=== PATIENT | female | born 1930 | race Caucasian/White ===

== ENCOUNTER 2017-01-06 18:22 | Inpatient (IN) | payer MEDICARE, OTHER ==
[2017-01-06] MEDS ORDERED: IOPAMIDOL 300 (61%) 100 ML VIAL IV ONE (18:23)
[2017-01-06 20:10] LABS: ABSOLUTE NEUTROPHIL COUNT 14.1 K/mm3 (1.8-7.7); BASO # 0.1 K/mm3 (0.0-0.2); BASO % 0.5 % (0.2-1.0); EOS # 0.1 (0.0-0.5); EOS % 0.5 % (0.9-2.9); HEMATOCRIT 35.7 % (37.0-47.0); HEMOGLOBIN 11.1 gm/l (12.0-16.0); IMM NEUT # 0.1 K/mm3 (0-0.2); IMM NEUT% 0.8 % (0-1); LYMPH # 1.2 (1.0-4.8); LYMPH % 7.2 % (15-45); MEAN CELL VOLUME 89.9 fl (81.0-99.0); MEAN CORPUSCULAR HGB CONC 31.1 g/dl (33.0-37.0); MONO # 1.3 (0.0-0.8); MONO % 7.9 % (4-12); NEUT % 83.1 % (43-75); PLATELET COUNT 496 K/mm3 (130-400); RED CELL DISTRIBUTION WIDTH 14.7 % (11.5-14.5)
[2017-01-06 20:21] LABS: ALB/GLOB RATIO 0.6 (>1.0); CALCIUM 10.3 mg/dL (8.6-10.3)
[2017-01-06 20:36] LABS: URINE BILIRUBIN NEGATIVE (NEGATIVE); URINE BLOOD NEGATIVE (NEGATIVE); URINE GLUCOSE (UA) 1+ (NEGATIVE); URINE LEUKOCYTE ESTERASE NEGATIVE (NEGATIVE); URINE NITRITE NEGATIVE (NEGATIVE); URINE PROTEIN NEGATIVE (NEGATIVE); URINE UROBILINOGEN NORMAL (0-1 mg/dl)
[2017-01-06 20:39] LABS: URINE APPEARANCE CLEAR; URINE COLOR YELLOW
[2017-01-06] MEDS ORDERED: LACTATED RINGERS 1,000 ML ONE ×2 (20:49→21:08)
[2017-01-06] MEDS ORDERED: PIPERACILLIN-TAZO PREMIX BAG 50 ML IV ONE (21:09)
--- NOTE | 2017-01-06 21:16 | CT ---
Exam Type: ABD/PELVIS W/ CON Date and Time: 01/06/2017 7:33 PM Clinical information: Decubitus ulcer along the sacrum. Question of osteomyelitis. Comparison: CT abdomen pelvis with contrast 05/08/2016. Technique: Contiguous axial 4 mm images were obtained from the lung bases through the pelvis after the uneventful IV administration of 100 cc of Isovue-300. Sagittal and coronal reformations with high resolution lung algorithm images were also obtained at this time. CT DI: 8.5 DLP 443.6 FINDINGS: Patient breathing motion artifact limits assessment. Patient is also unable to hold arms above head limiting evaluation. Lung base : Dependent and atelectatic changes. Visualized heart:There is no pericardial effusion. Coronary artery calcifications. LIVER: Mild diffuse fatty infiltration without focal lesion. BILE DUCTS: normal caliber. GALLBLADDER: Multiple small stones. PANCREAS: within normal limits. SPLEEN: within normal limits. ADRENALS: Probable left adrenal gland lesion measuring 1.5 x 1 cm. This is not significantly changed from prior study. KIDNEYS: within normal limits. Stomach and small BOWEL: Normal caliber. Large bowel: Air and stool are noted within the large bowel. Appendix is normal. There is diverticulosis without diverticulitis or abscess formation. LYMPH NODES: No enlarged mesenteric lymph nodes. PERITONEUM: no ascites or free air, no fluid collection. VESSELS: Moderate atherosclerotic disease of the abdominal aorta and branch vessels. RETROPERITONEUM: within normal limits. ABDOMINAL WALL: Decubitus ulcer is noted overlying the inferior sacrum and coccyx. Soft tissue gas and fluid are present within this region. This measures approximately 2 x 2.7 x 4.0 cm in maximal AP, transverse and craniocaudal extent. This is measured on axial image 108 and sagittal image 41. Bladder: Cavazos catheter is noted within the urinary bladder. BONES: Multilevel degenerative changes of the spine are present. No lytic or sclerotic lesions are noted. No focal osteolysis or periosteal reaction is noted to suggest osteomyelitis, however, these are late findings in the disease process. IMPRESSION: Decubitus ulcer extending towards the sacrum and coccyx. No definite findings of osteomyelitis are noted, however CT findings are late in the disease process. MRI with and without contrast or three-phase bone scan would be recommended for further assessment if there is high clinical suspicion of osteomyelitis. Other findings as detailed above. Report was uploaded to the electronic medical record at approximately 2113 hours on 01/06/2017.
[2017-01-06] MEDS ORDERED: SODIUM CHLORIDE 0.9% IV ONE (21:30)
[2017-01-06] MEDS ORDERED: VANCOMYCIN HCL IV ONE (21:30)
[2017-01-06] MEDS ORDERED: VANCOMYCIN HCL 0 G in SODIUM CHLORIDE 0.9% 275 ML IV SCH (23:01)
[2017-01-06] MEDS ORDERED: SODIUM CHLORIDE 0.9% 100 ML IV PRN (23:01)
[2017-01-06] MEDS ORDERED: MAGNESIUM HYDROXIDE 30 ML UDCUP PO PRN (23:01)
[2017-01-06] MEDS ORDERED: BISACODYL 10 MG SUP PR PRN (23:01)
[2017-01-06] MEDS ORDERED: MENTHOL/CETYLPYRD 1 EACH LOZENGE PO PRN (23:01)
[2017-01-06] MEDS ORDERED: BISACODYL 5 MG TABLET.EC PO PRN (23:01)
[2017-01-06] MEDS ORDERED: ACETAMINOPHEN 325 MG TABLET PO PRN (23:01)
[2017-01-06] MEDS ORDERED: BLISTEX LIPSTICK 1 EACH TP PRN (23:01)
[2017-01-06 23:03] VITALS: BMI 20.9
[2017-01-06] MEDS: LACTATED RINGERS 1,000 ML IV SCH (23:03)
[2017-01-07] MEDS: ENOXAPARIN SODIUM 40 MG/0.4 ML SYRINGE SUB-Q SCH ×2 (00:04→20:50)
[2017-01-07] MEDS: LACTATED RINGERS 1,000 ML IV SCH ×3 (00:38→15:51)
[2017-01-07] MEDS: INSULIN ASPART (DOSE) 100 UNITS/1 ML SUB-Q PRN ×2 (01:06→16:55)
[2017-01-07] MEDS ORDERED: PIPERACILLIN-TAZO PREMIX BAG 50 ML IV ONE (02:43)
[2017-01-07] MEDS ORDERED: PIPERACILLIN-TAZO PREMIX BAG 3.375 G in Premix (D5W) 50 ml 1 EACH IV SCH (03:00)
[2017-01-07 06:19] LABS: ABSOLUTE NEUTROPHIL COUNT 11.1 K/mm3 (1.8-7.7); BASO # 0.1 K/mm3 (0.0-0.2); BASO % 0.5 % (0.2-1.0); EOS # 0.2 (0.0-0.5); EOS % 1.2 % (0.9-2.9); HEMATOCRIT 30.3 % (37.0-47.0); HEMOGLOBIN 9.3 gm/l (12.0-16.0); IMM NEUT # 0.1 K/mm3 (0-0.2); IMM NEUT% 0.7 % (0-1); LYMPH # 1.8 (1.0-4.8); LYMPH % 11.9 % (15-45); MEAN CELL VOLUME 90.2 fl (81.0-99.0); MEAN CORPUSCULAR HEMOGLOBIN 27.7 pg (27.0-31.0); MEAN CORPUSCULAR HGB CONC 30.7 g/dl (33.0-37.0); MEAN PLATELET VOLUME 10.1 fl (7.4-10.4); MONO # 1.5 (0.0-0.8); MONO % 10.2 % (4-12); NEUT % 75.5 % (43-75); PLATELET COUNT 421 K/mm3 (130-400); RED CELL DISTRIBUTION WIDTH 14.7 % (11.5-14.5)
[2017-01-07 06:23] LABS: CALCIUM 9.3 mg/dL (8.6-10.3)
[2017-01-07] MEDS: CLOTRIMAZOLE 1% 15 APPLIC/15 G CREAM TP SCH ×3 (07:02→22:36)
--- NOTE | 2017-01-07 07:41 | HP ---
Hillary Whitten [id number] DATE OF ADMSSION: 01/06/2017 CHIEF COMPLAINT: Worsening wound on the sacrum. HISTORY OF PRESENT ILLNESS: The patient is an 86-year-old female whose was brought to the [facility] Emergency Department reportedly by her caregiver, however, the caregiver left before I was able to get any history and is not available by phone. The patient is nonverbal due to advanced senile dementia. Reportedly the patient is cared for at her home by the caregiver. Reportedly the patient's is in a [facility]. Reportedly the patient has had a wound over her sacrum for several months, but in the last several weeks this has gotten worse prompting evaluation in the emergency department. The patient was found to have clinical evidence of severe sepsis based on a white count of 17,000 and a lactate of 2.9. The emergency department records is not currently available. The patient has some office notes scanned into [employer] which used to obtain her past medical history. REVIEW OF SYSTEMS: Not possible. PAST MEDICAL HISTORY: Significant for chronic essential hypertension. Patient has had a history of diabetes, adult onset on oral medications. She has had a history of a stroke with some residual left sided weakness since 2002. She has a history of breast cancer on the right breast. She has a history of degenerative joint disease especially involving her knees. She has had some depression and hyperlipidemia. PAST SURGICAL HISTORY: Significant for right sided mastectomy. She had a left breast lumpectomy. She had a total abdominal hysterectomy and bilateral salpingo-oophorectomy. ALLERGIES: DOCUMENTED TO PENICILLIN, HOWEVER, SHE RECEIVED ZOSYN IN THE EMERGENCY DEPARTMENT WITHOUT GIANNI DVERSE EFFECTS. CURRENT MEDICATIONS: Unknown. FAMILY HISTORY: Significant for maternal grandmother with Parkinson's disease. Her mother had dementia and Parkinson's disease as well as hypertension. SOCIAL HISTORY: Patient is . There is no history of alcohol use or tobacco use documented. It is unclear if she follows any modified diet. No advanced directive or POLST form is available. There is no family members or caregivers available at this time. Apparently she lives at home and has a caregiver who takes care of her, but this could not be confirmed. Her primary care provider is Dr. Gilberto Rodriguez. PHYSICAL EXAMINATION: VITAL SIGNS: Pending. She has a body mass index of 20.9 and a weight of 60.6 kg. Temperature is 98.4, pulse 106, blood pressure is 146/55, respirations 24, oxygen saturations are 95% on room air. GENERAL: This is an elderly female in no acute distress. She awake with her eyes opened. She does not seem to follow any commands or verbalize at all. She does withdraw to pain. HEENT: Pupils appear to be equal, round, and reactive to light. Moist pink oral mucosa is noted. NECK: Supple without lymphadenopathy or thyromegaly. LUNGS: Clear to auscultation bilaterally. CARDIOVASCULAR: Reveals a regular tachycardia with a loud S2 click. Surgical scarring over the right chest wall is present from her mastectomy and extending into the axilla. Abdomen is soft, nontender, nondistended with positive bowel sounds. EXTREMITIES: No peripheral edema. She does have very stiff extremities and some flexion contractures which I am able to extend her arms with some stretching. SKIN: She has papulosquamous rash in the groin especially on the left side in the skin fold, over the perineum, and the anal tissues. She has a 2 x 1.5 cm full thickness ulceration in the right axilla without inflammation or drainage. She has a stage IV decubitus ulcer over the sacrum measuring approximately 3 cm wide, 2 cm in the vertical axis, and 2 cm deep with fascia and muscle exposed, but no bone is evident on probing. Her feet and hands are warm. LABORATORY STUDIES: CBC shows a white count of 17,000, hemoglobin 11.1, platelet count 496,000. Lactate is elevated at 2.9. Chemistry profile shows a sodium of 134, potassium 4.5, carbon dioxide 26, BUN 31, creatinine 1.0, glucose 393. Normal liver function tests. Albumin is 3.0, globulin is 4.7. Urinalysis shows 1+ glucose, specific gravity of 1.020 otherwise, negative. DIAGNOSTICS: CT of the abdomen and pelvis with contrast showed some soft tissue gas and fluid present within the region of the coccyx and sacrum with 2 x 2.7 x [address] images. ASSESSMENT: The patient meets criteria for severe sepsis due to bacterial infection of the stage IV sacral decubitus ulcer, it is likely polymicrobial and no cultures were obtained at this time except for blood cultures. The patient has been treated with Zosyn and vancomycin. She has advanced dementia which complicates her care. She has uncontrolled diabetes. She is admitted to the intermediate care unit. She will be given correction dose NovoLog, aggressive hydration and continue the antibiotics pending culture results. She has evidence of a yeast dermatitis in the perineal area, will treat this is clotrimazole and consider surgical consultation in the morning for debridement. In the meantime we will pack her ulcer with alginate dressing. Further treatment and recommendations will depend on her hospital course. We will work on getting more clinical information when the clinic is open and the caregiver is available including medication list and her code status. Venous thromboembolism risk is moderate and Lovenox has been prescribed for prophylaxis. JOB: [id number] CC: Dr. Gilberto Rodriguez
--- NOTE | 2017-01-07 07:42 | RAD ---
Exam: Portable chest COMPARISON: 05/08/2016, 02/28/2015, 09/27/2014 INDICATION: Altered mental status. FINDINGS: A semierect AP portable view of the chest demonstrates a cardiomediastinal silhouette which is stable. Cardiac silhouette is normal and there is stable ectasia of the ascending thoracic aorta and aortic arch. There is chronic right apical pleural parenchymal scarring. Lung jain are otherwise symmetric and clear. Bones of the chest wall within normal limits. IMPRESSION: No acute pulmonary process.
[2017-01-07] MEDS ORDERED: FLU VACC 2016-17 (65 YR+)/PF 180 MCG/0.5 ML SYRINGE IM V ONE (09:02)
[2017-01-07] MEDS: PIPERACILLIN SODIUM/TAZOBACTAM 3.375 G in NS 0.9% (MINI-BAG PLUS) 50 ML IV SCH ×3 (09:09→20:52)
[2017-01-07] MEDS: DOCUSATE SODIUM 100 MG CAPSULE PO SCH ×2 (10:58→20:49)
--- NOTE | 2017-01-07 12:23 | PDOC43 ---
- Subjective Chief Complaint: unresponsive Subjective: Reports Other (remains unresponsive), Denies Shortness of Breath, Denies Fever - Objective Vital Signs Temperature 97.9 F 01/07/17 11:02 Pulse Rate 86 01/07/17 11:02 Respiratory Rate 24 01/07/17 11:02 Blood Pressure 140/58 01/07/17 11:02 O2 Saturation by Pulse Oximetry 98 01/07/17 11:02 Oxygen Delivery Method Room Air Oxygen Flow Rate 0 Intake and Output 01/06/17 01/07/17 01/08/17 06:59 06:59 06:59 Intake Total 2561 Output Total 450 325 Balance 2111 -325 General: Other (eyes closed and resists opening of eyes) HEENT: Mucous membr. moist/pink Lungs: Clear to Auscultation Bilaterally Cardiovascular: Regular Rate and Rhythm Abdomen: Soft, Normal Bowel Sounds, Non-Distended, No Tenderness Extremities: No Edema Skin: Erythema (and papulosquamous rash over perineum, shallow ulcer in right axilla approc 2 by 1.5cm, 3 by 2 by 2 cm stage 4 decubitus over coccyx with necrotic base-probed area and no bone palpable, no crepitis or fluctuance, mild erythema around ulcer) Neurological: Other (GCS=[id number]?) Laboratory 01/07/17 05:30 01/07/17 05:30 01/07/17 01/07/17 01/07/17 11:08 05:30 01:01 RBC 3.36 L MCHC 30.7 L RDW 14.7 H VBG Lactate POC Capillary Glucose 108 H 261 H 01/06/17 23:35 RBC MCHC RDW VBG Lactate 2.2 H POC Capillary Glucose Current Medications: Current meds reviewed in EMR. - Problems: Assessment/Plan (1) Decubitus ulcer of coccygeal region, stage 4 Status: AcuteAssessment/Plan: WITH SECONDARY BACTERIAL INFECTION(POLYMICROBIAL) CAUSING SEVERE SEPSIS with leukocytosis, lactic acidosis and acute metabolic encephalopathy-treated with fluids, Zosyn and Vancomycin, blood Cx pending, postpone surgical debridement pending decision on level of care from family (2) Senile dementia with delirium Qualifiers: Dementia behavioral disturbance: without behavioral disturbance Qualifier Code: (F03.90) Unspecified dementia without behavioral disturbance Status: AcuteAssessment/Plan: and acute metabolic encephalopathy, discussed with 3/4 children but unable to reach Jacobo the dentist, so far ll children agree with comfort care measures but patient's healthcare shipping services sales representative(sonKermit) would like to continue antibiotics and fluids until a consensus is reached-refer to Hospice (3) Diabetes Qualifiers: Diabetes mellitus type: type 2 Diabetes mellitus complication status: with unspecified complications Diabetes mellitus correction insulin use: without rubber mill operator use Qualifier Code: (E11.8) Type 2 diabetes mellitus with unspecified complications Status: AcuteAssessment/Plan: treat with correction Novolog as needed (4) Late effects of cerebrovascular accident Status: ChronicAssessment/Plan: CVA in 2002 with nondom. left sided weakness (5) History of breast cancer Status: AcuteAssessment/Plan: on right S/P rad. mastectomy with lymph node resection and chronic lymphedema of right arm VTE Prophylaxis: Lovenox Disposition: possible hospice discharge in am
[2017-01-07] MEDS: D5 1/2NS with 20 mEq KCL 1,000 ML IV SCH ×2 (13:08→20:53)
[2017-01-07] MEDS: VANCOMYCIN HCL 1 G in SODIUM CHLORIDE 0.9% 250 ML IV SCH (21:27)
[2017-01-08] MEDS: PIPERACILLIN SODIUM/TAZOBACTAM 3.375 G in NS 0.9% (MINI-BAG PLUS) 50 ML IV SCH ×4 (02:17→21:53)
[2017-01-08] MEDS: D5 1/2NS with 20 mEq KCL 1,000 ML IV SCH ×3 (03:50→18:19)
[2017-01-08] MEDS: INSULIN ASPART (DOSE) 100 UNITS/1 ML SUB-Q PRN ×2 (05:46→13:01)
[2017-01-08] MEDS: DOCUSATE SODIUM 100 MG CAPSULE PO SCH (08:51)
[2017-01-08] MEDS: CLOTRIMAZOLE 1% 15 APPLIC/15 G CREAM TP SCH ×2 (08:51→21:53)
--- NOTE | 2017-01-08 10:06 | PDOC43 ---
- Subjective Chief Complaint: unresponsive Remains unresponsive. Occ opens eyes as per RN. - Objective Vital Signs Temperature 98.4 F 01/08/17 06:51 Pulse Rate 86 01/08/17 06:51 Respiratory Rate 22 01/08/17 06:51 Blood Pressure 141/54 01/08/17 06:51 O2 Saturation by Pulse Oximetry 96 01/08/17 06:51 Oxygen Delivery Method Room Air Oxygen Flow Rate 0 Intake and Output 01/07/17 01/08/17 01/09/17 06:59 06:59 06:59 Intake Total 2561 2986 Output Total 450 1710 Balance 2111 1276 HEENT: Atraumatic, Mucous membr. moist/pink Lungs: Clear to Auscultation Bilaterally Cardiovascular: Regular Rate and Rhythm Abdomen: Soft, Normal Bowel Sounds, Non-Distended Extremities: No Edema Wound: Dressing Clean/Dry/Intact Current Medications: Current meds reviewed in EMR. - Problems: Assessment/Plan (1) Decubitus ulcer of coccygeal region, stage 4 Status: AcuteAssessment/Plan: WITH SECONDARY BACTERIAL INFECTION(POLYMICROBIAL) CAUSING SEVERE SEPSIS with leukocytosis, lactic acidosis and acute metabolic encephalopathy-treated with fluids, Zosyn and Vancomycin. Sepsis resolved. Blood Cx pending. Preliminary plan to transition to hospice as per discussions with most of family last night- still awaiting clarity on final family decision. SW involved to help with logistics/decisionmaking. (2) Senile dementia with delirium Qualifiers: Dementia behavioral disturbance: without behavioral disturbance Qualifier Code: (F03.90) Unspecified dementia without behavioral disturbance Status: AcuteAssessment/Plan: and acute metabolic encephalopathy, so far all children agree with comfort care measures as above but patient's healthcare utility sales representative(Simon) would like to continue antibiotics and fluids until a consensus is reached. SW involved to help clarify and assist with family decisionmaking. (3) Diabetes Qualifiers: Diabetes mellitus type: type 2 Diabetes mellitus complication status: with unspecified complications Diabetes mellitus intermediate card tender insulin use: without fdc use Qualifier Code: (E11.8) Type 2 diabetes mellitus with unspecified complications Status: AcuteAssessment/Plan: treat with correction Novolog as needed (4) Late effects of cerebrovascular accident Status: ChronicAssessment/Plan: CVA in 2002 with nondom. left sided weakness (5) History of breast cancer Status: AcuteAssessment/Plan: on right S/P rad. mastectomy with lymph node resection and chronic lymphedema of right arm Disposition: Anticipate hospice discharge today or in AM.
[2017-01-08] MEDS: VANCOMYCIN HCL 1 G in SODIUM CHLORIDE 0.9% 250 ML IV SCH (22:14)
[2017-01-09] MEDS: D5 1/2NS with 20 mEq KCL 1,000 ML IV SCH (00:36)
[2017-01-09] MEDS: PIPERACILLIN SODIUM/TAZOBACTAM 3.375 G in NS 0.9% (MINI-BAG PLUS) 50 ML IV SCH ×2 (03:16→09:57)
[2017-01-09] MEDS: CLOTRIMAZOLE 1% 15 APPLIC/15 G CREAM TP SCH (12:07)
--- NOTE | 2017-01-09 13:11 | DS ---
Hillary Whitten ADMIT DATE: 01/05/2017 DISCHARGE DATE: 01/09/2017 ADMIT DIAGNOSES: 1. Stage IV sacral decubitus ulcer. 2. Severe sepsis secondary to above. 3. Advanced dementia with baseline minimally responsive status. 4. History of cerebrovascular accident with residual left sided weakness. 5. History of breast cancer. DISCHARGE DIAGNOSES: 1. Stage IV sacral decubitus ulcer. 2. Severe sepsis secondary to above. 3. Advanced dementia with baseline minimally responsive status. 4. History of cerebrovascular accident with residual left sided weakness. 5. History of breast cancer. 6. Transition to hospice. ADMIT HISTORY AND PHYSICAL: Please see Dr. Powers's note for details. Briefly, Ms. Whitten is an 86-year-old woman with advanced dementia. She was brought to the emergency room department by her caregiver on the day of admission with a sacral decubitus. Evaluation revealed a stage IV sacral decubitus with evidence of severe sepsis as a result. She has advanced dementia and is nonverbal. She was initially admitted to the hospice service for IV antibiotic treatment, wound care, and possible surgical consult. HOSPITAL COURSE: She was admitted and received noninvasive support care. Family conferences were held with family and it was felt that a transition to hospice would be more in line with what the patient would want instead of more surgery. During her hospitalization we continued with supportive care with IV fluids, antibiotics, and wound care while the decisions were made, conversations were had and the logistics were sorted out. By day of discharge family had come to a consensus that hospice was the correct choice and that we have elected to discharge her to [facility], this is where her is a resident as well. DISCHARGE MEDICATIONS: 1. Haldol 1 mg one tablet by mouth three times daily as needed for agitation or nausea. 2. Lorazepam liquid 2 mg/mL 30 mL bottle 2 mg by mouth every 4 to 6 hours as needed for agitation. 3. Roxanol 20 mg/mL 5 to 20 mg by mouth every 1 hour as needed for pain. 4. Lotrimin topical applied twice daily to affected area. Wound care as per hospice. Further mediation and orders as per [facility]. JOB: 950 CC: Dr. Gilberto Rodriguez
[2017-01-09 14:14] VITALS: BP 149/69
== END 2017-01-09 16:34 | disposition home or self-care (01) | DRG 592 ==
LOC: ED 18:22 → ICU 22:03 → MS 01-08 20:10
PROVIDERS: ADMIT Family Medicine; ATTEND Family Medicine
DX: L89.154 Pressure ulcer of sacral region, stage 4 (principal); R65.20 Severe sepsis without septic shock; I69.354 Hemiplegia and hemiparesis following cerebral infarction affecting left non-dominant side; F03.91 Unspecified dementia, unspecified severity, with behavioral disturbance; F03.90 Unspecified dementia, unspecified severity, without behavioral disturbance, psychotic disturbance, mood disturbance, and anxiety; Z85.3 Personal history of malignant neoplasm of breast; E11.9 Type 2 diabetes mellitus without complications